=== PATIENT | female | born 1980 | race Caucasian/White ===

== ENCOUNTER → 2017-06-22 | Outpatient (CLI) | payer OTHER ==
[2017-06-22 08:28] LABS: BASOPHIL % 0.4 % (0-2); PLATELET COUNT 223 x10^3mcL (130-400); RED CELL DISTRIBUTION WIDTH 11.9 % (11.5-14.5)
[2017-06-22 08:43] LABS: ALBUMIN 3.9 g/dL (3.4-5.0); ALKALINE PHOSPHATASE 81 U/L (46-116); ALT/SGPT 19 U/L (14-59); AST/SGOT 13 U/L (15-37); BILIRUBIN TOTAL 0.6 mg/dL (0.20-1.00); CALCIUM 8.8 mg/dL (8.5-10.1); CARBON DIOXIDE 29.9 mmol/L (21-32); CHLORIDE SERUM 104 mmol/L (98-107); CHOLESTEROL 147 mg/dL (<200); CHOLESTEROL/HDL RATIO 2.5; CREATININE SERUM 0.9 mg/dL (0.6-1.0); GFR1 > 60 mL/min; GLUCOSE SERUM 90 mg/dL (74-106); HDL CHOLESTEROL 58 mg/dL (40-60); SODIUM SERUM 138 mmol/L (136-145); TOTAL PROTEIN, SERUM 7.8 g/dL (6.4-8.2); TRIGLYCERIDES 49 mg/dL (<150)
[2017-06-22 08:51] LABS: FREE T4 1.02 ng/dL (0.76-1.46); FREE THYROXINE INDEX 2.9 ug/dL (1.4-4.5); T4(THYROXINE) 8.4 ug/dL (4.7-13.3)
[2017-06-22 10:50] LABS: T3 TOTAL 1.26 ng/mL
== END | disposition home or self-care (01) ==
LOC: LB 08:07
PROVIDERS: Family Medicine
DX: N39.0 Urinary tract infection, site not specified (principal)
CPT/HCPCS: 84439

== ENCOUNTER → 2017-06-28 | Outpatient (CLI) | payer OTHER | END | disposition home or self-care (01) | LOC: US 17:46 | PROC: BT4JZZZ Ultrasonography of Kidneys and Bladder (ICD-10-PCS; principal; 2017-06-28) | DX: N39.0 Urinary tract infection, site not specified (principal) ==

== ENCOUNTER → 2018-07-26 | Outpatient (CLI) | payer OTHER ==
[2018-07-26 18:10] LABS: FREE T4 0.9 ng/dL (0.76-1.46); FREE THYROXINE INDEX 2.2 ug/dL (1.4-4.5); T4(THYROXINE) 6.8 ug/dL (4.7-13.3)
[2018-07-26 19:20] LABS: T3 TOTAL 1.19 ng/mL
== END | disposition home or self-care (01) ==
LOC: US 17:09
PROC: BG44ZZZ Ultrasonography of Thyroid Gland (ICD-10-PCS; principal; 2018-07-26)
DX: R53.83 Other fatigue (principal); R22.1 Localized swelling, mass and lump, neck
CPT/HCPCS: 84439

== ENCOUNTER → 2018-08-18 | Outpatient (CLI) | payer OTHER ==
[2018-08-18 17:22] LABS: BASOPHIL % 0.9 % (0-2); PLATELET COUNT 255 x10^3mcL (130-400); RED CELL DISTRIBUTION WIDTH 12.8 % (11.5-14.5)
== END | disposition home or self-care (01) ==
LOC: LB 17:01
DX: Z01.818 Encounter for other preprocedural examination (principal)

== ENCOUNTER → 2018-09-09 | Day surgery (SDC) | payer OTHER ==
[~2018-09-09] VITALS: Ht 172.7 cm; Wt 59.0 kg
[2018-09-09 08:59] VITALS: BP 126/83
[2018-09-09 09:12] VITALS: BP 126/83
[2018-09-09 10:30] VITALS: BP 127/79
[2018-09-09 11:00] VITALS: BP 115/67
== END | disposition home or self-care (01) ==
LOC: US 08:11
PROC: 0GBH3ZX Excision of Right Thyroid Gland Lobe, Percutaneous Approach, Diagnostic (ICD-10-PCS; principal; 2018-09-09)
DX: E04.1 Nontoxic single thyroid nodule (principal)
CPT/HCPCS: 60100; J2001

== ENCOUNTER 2020-07-27 10:52 | Emergency (ER) | payer OTHER, SELFPAY ==
[~2020-07-27] VITALS: Ht 170.2 cm; Wt 59.0 kg
[2020-07-27 10:55] VITALS: Ht 170.2 cm; Wt 59.0 kg
[2020-07-27 12:47] VITALS: BP 131/80
== END 2020-07-27 12:47 | disposition home or self-care (01) ==
LOC: ED 10:52
DX: G44.209 Tension-type headache, unspecified, not intractable (principal); H61.23 Impacted cerumen, bilateral; Z20.828 Contact with and (suspected) exposure to other viral communicable diseases
CPT/HCPCS: J1885; U0003